=== PATIENT | male | born 1960 | race Caucasian/White ===

== ENCOUNTER → 2021-05-13 | Outpatient (CLI) | payer MEDICARE, OTHER ==
[~2021-05-13] MED LIST: ADVAIR 250-501 EACH INH; AMITIZA24 MCG PO; AMMONIUM LACTA140 GM TOP; ASPIRIN EC81 MG PO; CETIRIZINE HCL10 MG PO; COMBIVENT0.074 GM/I INH; CYMBALTA30 MG PO; DECADRON6 MG PO; DIGOXIN125 MCG PO; ELIQUIS5 MG PO; FAMOTIDINE40 MG PO; FLOMAX 0.4 MG0.4 MG PO; FLONASE ALLER15.8 ML; HYDROCODON-ACE1 EAC6 PO; HYDROXYZINE HCL25 MG PO; IBUPROFEN600 MG PO; INCRUSE ELLI62.5 MCG INH; ISOSORBIDE MONO60 MG PO; KLONOPIN0.5 MG PO; LASIX 40 MG TAB40 MG PO; LIPITOR80 MG PO; LISINOPRIL2.5 MG PO; MEDROL DOSEPAK 24 MG PO; MONTELUKAST SOD10 MG PO; NEURONTIN800 MG PO; NITROGLYCERIN0.4 MG SL; OMNICEF 300 MG300 MG PO; ONDANSETRON HCL4 MG PO; OXYGEN; PATADAY2.5 ML EYEBOTH; PHENERGAN 25 MG25 M1 PO; PLAVIX 75 MG TA75 MG PO; PREDNISONE20 MG PO; PROAIR DIGIHAL90 MCG INH; PROTONIX40 MG PO; RANEXA1000 MG PO; SOTALOL AF160 MG PO; SPIRIVA18 MCG INH; SYMBICORT 160-1 INHA INH; VENTOLIN/PROVE0.5 ML INH; VITAMIN B-121000 MC2 SL; ZANTAC300 MG PO; ZETIA10 MG PO; ZYRTEC10 M3 PO; ZYRTEC10 MG PO
== END ==
LOC: CT 14:00
DX: R91.8 Other nonspecific abnormal finding of lung field (principal); J92.9 Pleural plaque without asbestos; Z87.891 Personal history of nicotine dependence
CPT/HCPCS: 36415

== ENCOUNTER 2021-06-09 18:19 | Inpatient (IN) | payer MEDICARE, OTHER ==
[~2021-06-09] VITALS: Ht 185.4 cm; Wt 95.3 kg
[~2021-06-09 18:19] MED LIST changes: -AMMONIUM LACTA140 GM TOP; -ASPIRIN EC81 MG PO; -CETIRIZINE HCL10 MG PO; -CYMBALTA30 MG PO; -DECADRON6 MG PO; -DIGOXIN125 MCG PO; -ELIQUIS5 MG PO; -FAMOTIDINE40 MG PO; -FLONASE ALLER15.8 ML; -HYDROCODON-ACE1 EAC6 PO; -HYDROXYZINE HCL25 MG PO; -INCRUSE ELLI62.5 MCG INH; -ISOSORBIDE MONO60 MG PO; -KLONOPIN0.5 MG PO; -LIPITOR80 MG PO; -LISINOPRIL2.5 MG PO; -NEURONTIN800 MG PO; -ONDANSETRON HCL4 MG PO; -PATADAY2.5 ML EYEBOTH; -PROAIR DIGIHAL90 MCG INH; -PROTONIX40 MG PO; -SOTALOL AF160 MG PO; -SYMBICORT 160-1 INHA INH; -VITAMIN B-121000 MC2 SL; -ZETIA10 MG PO
[2021-06-09 19:58] LABS: HEMOGLOBIN 13.4 gm/dl (14.0-17.5); RED BLOOD COUNT 4.33 M/UL (4.20-5.50); WHITE BLOOD COUNT 9.1 K/UL (4.5-11.0)
[2021-06-09 22:22] LABS: BUN/CREATININE RATIO 9 (0-10)
[2021-06-10] MEDS ORDERED: NEURONTIN800 MG PO (01:50)
[2021-06-10] MEDS ORDERED: HYDROCODON-ACE1 EAC6 PO (01:51)
[2021-06-10] MEDS ORDERED: LIPITOR80 MG PO (01:55)
[2021-06-10] MEDS ORDERED: CYMBALTA30 MG PO (01:56)
[2021-06-10] MEDS ORDERED: FLONASE ALLER15.8 ML (01:58)
[2021-06-10] MEDS ORDERED: PROTONIX40 MG PO (01:59)
[2021-06-10] MEDS ORDERED: SOTALOL AF160 MG PO (02:01)
[2021-06-10 03:31] LABS: RED BLOOD COUNT 4.21 M/UL (4.20-5.50); WHITE BLOOD COUNT 11.7 K/UL (4.5-11.0)
[2021-06-10 03:51] LABS: BUN/CREATININE RATIO 11 (0-10)
[2021-06-10] MEDS ORDERED: AMMONIUM LACTA140 GM TOP (13:22)
[2021-06-10] MEDS ORDERED: CETIRIZINE HCL10 MG PO (13:24)
[2021-06-10] MEDS ORDERED: DIGOXIN125 MCG PO (13:29)
[2021-06-10] MEDS ORDERED: ELIQUIS5 MG PO (13:30)
[2021-06-10] MEDS ORDERED: ZETIA10 MG PO (13:31)
[2021-06-10] MEDS ORDERED: FAMOTIDINE40 MG PO (13:33)
[2021-06-10] MEDS ORDERED: INCRUSE ELLI62.5 MCG INH (13:43)
[2021-06-10] MEDS ORDERED: PATADAY2.5 ML EYEBOTH (13:46)
[2021-06-10] MEDS ORDERED: ONDANSETRON HCL4 MG PO (13:47)
[2021-06-10] MEDS ORDERED: SYMBICORT 160-1 INHA INH (13:51)
[2021-06-10] MEDS ORDERED: HYDROXYZINE HCL25 MG PO (13:53)
[2021-06-10] MEDS ORDERED: VITAMIN B-121000 MC2 SL (13:54)
[2021-06-10] MEDS ORDERED: LISINOPRIL2.5 MG PO (13:55)
[2021-06-10] MEDS ORDERED: LASIX 40 MG TAB40 MG PO (14:15)
[2021-06-10] MEDS ORDERED: PROAIR DIGIHAL90 MCG INH (14:49)
[2021-06-10] MEDS ORDERED: ASPIRIN EC81 MG PO (15:02)
[2021-06-10] MEDS ORDERED: ISOSORBIDE MONO60 MG PO (15:04)
[2021-06-10] MEDS ORDERED: KLONOPIN0.5 MG PO (20:44)
[2021-06-12 07:11] LABS: BUN/CREATININE RATIO 21 (0-10)
[2021-06-12] MEDS ORDERED: DECADRON6 MG PO (11:32)
[2021-06-12] MEDS ORDERED: OMNICEF 300 MG300 MG PO (11:37)
== END 2021-06-12 16:00 | disposition home or self-care (01) | DRG 871 ==
LOC: ER1 18:19 → CDU 23:49 → MED SURG 4 23:49
PROVIDERS: Internal Medicine; Student in an Organized Health Care Education/Training Program; ADMIT Internal Medicine
PROC: XW033E5 Introduction of Remdesivir Anti-infective into Peripheral Vein, Percutaneous Approach, New Technology Group 5 (ICD-10-PCS; 2021-06-09)
PROC: 3E0333Z Introduction of Anti-inflammatory into Peripheral Vein, Percutaneous Approach (ICD-10-PCS; 2021-06-09)
PROC: 8E0ZXY6 Isolation (ICD-10-PCS; principal; 2021-06-10)
DX: A41.89 Other specified sepsis (principal); U07.1 COVID-19; J12.82 Pneumonia due to coronavirus disease 2019; J96.01 Acute respiratory failure with hypoxia; J69.0 Pneumonitis due to inhalation of food and vomit; G93.41 Metabolic encephalopathy; J44.0 Chronic obstructive pulmonary disease with (acute) lower respiratory infection; E87.1 Hypo-osmolality and hyponatremia; N17.9 Acute kidney failure, unspecified; J44.1 Chronic obstructive pulmonary disease with (acute) exacerbation; E83.42 Hypomagnesemia; I11.0 Hypertensive heart disease with heart failure; I50.9 Heart failure, unspecified; I48.91 Unspecified atrial fibrillation; Z79.01 Long term (current) use of anticoagulants; Z79.82 Long term (current) use of aspirin
CPT/HCPCS: 36600; 71045; 80048; 80053; 82550; 82553; 82728; 82803; 83605; 83735; 84100; 84484; 85025; 85379; 87040; 93005; 94640; 94664; 94760; 96374; 99285; J0456; J0696; J1100; J1650; J3475; J7030; U0002

== ENCOUNTER 2021-06-16 01:51 | Emergency (ER) | payer MEDICARE, OTHER ==
[~2021-06-16 01:51] MED LIST changes: +AMMONIUM LACTA140 GM TOP; +ASPIRIN EC81 MG PO; +CETIRIZINE HCL10 MG PO; +CYMBALTA30 MG PO; +DECADRON6 MG PO; +DIGOXIN125 MCG PO; +ELIQUIS5 MG PO; +FAMOTIDINE40 MG PO; +FLONASE ALLER15.8 ML; +HYDROCODON-ACE1 EAC6 PO; +HYDROXYZINE HCL25 MG PO; +INCRUSE ELLI62.5 MCG INH; +ISOSORBIDE MONO60 MG PO; +KLONOPIN0.5 MG PO; +LIPITOR80 MG PO; +LISINOPRIL2.5 MG PO; +NEURONTIN800 MG PO; +ONDANSETRON HCL4 MG PO; +PATADAY2.5 ML EYEBOTH; +PROAIR DIGIHAL90 MCG INH; +PROTONIX40 MG PO; +SOTALOL AF160 MG PO; +SYMBICORT 160-1 INHA INH; +VITAMIN B-121000 MC2 SL; +ZETIA10 MG PO
[2021-06-16 03:17] LABS: HEMOGLOBIN 12.2 gm/dl (14.0-17.5); RED BLOOD COUNT 4.13 M/UL (4.20-5.50); WHITE BLOOD COUNT 11.6 K/UL (4.5-11.0)
[2021-06-16 03:47] LABS: BUN/CREATININE RATIO 19 (0-10)
== END 2021-06-16 08:20 | disposition home or self-care (01) ==
LOC: ER1 01:51
PROVIDERS: Physician Assistant
DX: U07.1 COVID-19 (principal); J44.1 Chronic obstructive pulmonary disease with (acute) exacerbation; I11.9 Hypertensive heart disease without heart failure
CPT/HCPCS: 36600; 71045; 80053; 82550; 82553; 82803; 83605; 83874; 83880; 84484; 85025; 85379; 87040; 93005; 94664; 99285

== ENCOUNTER 2021-10-11 20:52 | Emergency (ER) | payer MEDICARE, OTHER ==
[2021-10-11 21:38] LABS: HEMOGLOBIN 13.5 gm/dl (14.0-17.5); RED BLOOD COUNT 4.38 M/UL (4.20-5.50); WHITE BLOOD COUNT 24.3 K/UL (4.5-11.0)
[2021-10-11 21:58] LABS: BUN/CREATININE RATIO 15 (0-10)
[2021-10-11] MEDS ORDERED: ZITHROMAX250 MG PO (23:08)
[2021-10-11] MEDS ORDERED: IPRAT-ALBUT 0.5-3 ML INH (23:08)
[2021-10-11] MEDS ORDERED: OMNICEF 300 MG300 MG PO (23:08)
[2021-10-11] MEDS ORDERED: PREDNISONE20 MG PO (23:08)
== END 2021-10-11 23:35 | disposition home or self-care (01) ==
LOC: ER1 20:52
PROVIDERS: Family Medicine
DX: J44.1 Chronic obstructive pulmonary disease with (acute) exacerbation (principal); I51.9 Heart disease, unspecified; Z20.822 Contact with and (suspected) exposure to COVID-19
CPT/HCPCS: 71045; 80053; 82550; 82553; 82803; 83605; 83880; 84484; 85025; 87040; 93005; 96374; 99285; J2930; U0002

== ENCOUNTER 2021-10-15 18:31 | Emergency (ER) | payer MEDICARE, OTHER ==
[~2021-10-15 18:31] MED LIST changes: +IPRAT-ALBUT 0.5-3 ML INH; -PATADAY2.5 ML EYEBOTH; +PATADAY2.5 ML OU; +ZITHROMAX250 MG PO
[2021-10-15 19:37] LABS: HEMOGLOBIN 12.5 gm/dl (14.0-17.5); RED BLOOD COUNT 4.12 M/UL (4.20-5.50); WHITE BLOOD COUNT 18.4 K/UL (4.5-11.0)
[2021-10-15 20:02] LABS: BUN/CREATININE RATIO 22 (0-10)
[2021-10-15 20:46] LABS: BORDETELLA PARAPERTUSSIS Not Detected (Not Detectd); BORDETELLA PERTUSSIS Not Detected (Not Detectd); CHLAMYDIA PNEUMONIAE Not Detected (Not Detectd); CORONAVIRUS HKU1 Not Detected (Not Detectd); CORONAVIRUS NL63 Not Detected (Not Detectd); CORONAVIRUS OC43 Not Detected (Not Detectd); CORONOAVIRUS 229E Not Detected (Not Detectd); HUMAN METAPNEUMOVIRUS Not Detected (Not Detectd); HUMAN RHINOVIRUS/ENTEROVIRUS Not Detected (Not Detectd); INFLUENZA A Not Detected (Not Detectd); INFLUENZA B Not Detected (Not Detectd); MYCOPLASMA PNEUMONIAE Not Detected (Not Detectd); PARAINFLUENZA VIRUS 1 Not Detected (Not Detectd); PARAINFLUENZA VIRUS 2 Not Detected (Not Detectd); PARAINFLUENZA VIRUS 3 Not Detected (Not Detectd); PARAINFLUENZA VIRUS 4 Not Detected (Not Detectd); RESPIRATORY SYNCYTIAL VIRUS Not Detected (Not Detectd)
[2021-10-15 22:02] LABS: SARS-CoV-2 NOT DETECTED (Not Detectd)
[2021-10-16] MEDS ORDERED: ONDANSETRON HCL4 MG PO (17:12)
[2021-10-16] MEDS ORDERED: VITAMIN D250 MCG PO (17:13)
[2021-10-16] MEDS ORDERED: PREDNISONE 20 M20 MG PO (17:15)
[2021-10-16] MEDS ORDERED: CEFDINIR300 MG PO (17:16)
[2021-10-16] MEDS ORDERED: AZITHROMYCIN250 MG PO (17:17)
== END 2021-10-16 00:54 | disposition home or self-care (01) ==
LOC: ER1 18:31
PROVIDERS: Preventive Medicine Occupational Medicine
DX: R07.89 Other chest pain (principal); I48.91 Unspecified atrial fibrillation; I25.10 Atherosclerotic heart disease of native coronary artery without angina pectoris; Z20.822 Contact with and (suspected) exposure to COVID-19
CPT/HCPCS: 36600; 71045; 80053; 82009; 82550; 82553; 82803; 83605; 83690; 83874; 83880; 84484; 85025; 85652; 86140; 87040; 87633; 93005; 96374; 99285; C9113

== ENCOUNTER 2021-10-16 13:58 | Inpatient (IN) | payer MEDICARE, OTHER ==
[~2021-10-16] VITALS: Ht 185.4 cm; Wt 81.6 kg
[2021-10-16 15:20] LABS: HEMOGLOBIN 11.3 gm/dl (14.0-17.5); RED BLOOD COUNT 3.83 M/UL (4.20-5.50)
[2021-10-16 15:39] LABS: BUN/CREATININE RATIO 22 (0-10)
[2021-10-16] MEDS ORDERED: ONDANSETRON HCL4 MG PO (17:12)
[2021-10-16] MEDS ORDERED: VITAMIN D250 MCG PO (17:13)
[2021-10-16] MEDS ORDERED: PREDNISONE 20 M20 MG PO (17:15)
[2021-10-16] MEDS ORDERED: CEFDINIR300 MG PO (17:16)
[2021-10-16] MEDS ORDERED: AZITHROMYCIN250 MG PO (17:17)
[2021-10-17 07:51] LABS: HEMOGLOBIN 11.2 gm/dl (14.0-17.5); RED BLOOD COUNT 3.85 M/UL (4.20-5.50); WHITE BLOOD COUNT 9.8 K/UL (4.5-11.0)
[2021-10-17 08:37] LABS: BUN/CREATININE RATIO 25 (0-10)
[2021-10-18 06:35] LABS: HEMOGLOBIN 10.6 gm/dl (14.0-17.5); RED BLOOD COUNT 3.61 M/UL (4.20-5.50); WHITE BLOOD COUNT 12.2 K/UL (4.5-11.0)
[2021-10-18 07:17] LABS: BUN/CREATININE RATIO 29 (0-10)
[2021-10-19 07:40] LABS: HEMOGLOBIN 10.5 gm/dl (14.0-17.5); RED BLOOD COUNT 3.6 M/UL (4.20-5.50); WHITE BLOOD COUNT 9.4 K/UL (4.5-11.0)
[2021-10-19 08:24] LABS: BUN/CREATININE RATIO 28 (0-10)
--- NOTE | 2021-10-19 11:11 | NUR ---
RN CALLED DR. ROBLEDO ABOUT PATIENT'S FOLLOW-UP BLOOD GAS. HE ORDERED RN TO CONTINUE BIPAP UNTIL INSTRUCTED OTHERWISE.
--- NOTE | 2021-10-20 01:52 | NUR ---
PT'S BED ALARM WENT OFF. FOUNG PT LYING IN FLOOR NEXT TO BED. HE STATED THAT HE WAS GETTING UP TO USE URINAL. PRESENT AT BEDSIDE. THE PT DID NOT RING OUT FOR HELP. PT SAID HE SLID INTO THE FLOOR AND WASNT HURT. PT FREE OF S/SX OF DISTRESS OR INJURY. NOTIFIED DR VALENTINE AND RECIEVED NO NEW ORDERS. WILL CONTINUE TO MONITOR.
[2021-10-20 07:05] LABS: HEMOGLOBIN 11.3 gm/dl (14.0-17.5); RED BLOOD COUNT 3.82 M/UL (4.20-5.50); WHITE BLOOD COUNT 10.1 K/UL (4.5-11.0)
[2021-10-20 07:15] LABS: BUN/CREATININE RATIO 36 (0-10)
[2021-10-21] MEDS ORDERED: MEDROL DOSEPAK 24 MG PO (10:23)
[2021-10-21] MEDS ORDERED: SYMBICORT 160-1 INHA INH (10:23)
== END 2021-10-21 13:28 | disposition home or self-care (01) | DRG 291 ==
LOC: ER1 13:58 → CDU 16:15 → M/S 18:12
PROVIDERS: Emergency Medicine; Physician Assistant; Physician Assistant Medical; ADMIT Internal Medicine Infectious Disease
PROC: B24BZZZ Ultrasonography of Heart with Aorta (ICD-10-PCS; principal; 2021-10-18)
DX: I11.0 Hypertensive heart disease with heart failure (principal); J96.21 Acute and chronic respiratory failure with hypoxia; Z20.822 Contact with and (suspected) exposure to COVID-19; J96.22 Acute and chronic respiratory failure with hypercapnia; J18.9 Pneumonia, unspecified organism; I50.23 Acute on chronic systolic (congestive) heart failure; J44.1 Chronic obstructive pulmonary disease with (acute) exacerbation; E87.3 Alkalosis; E87.1 Hypo-osmolality and hyponatremia; K21.9 Gastro-esophageal reflux disease without esophagitis; I42.9 Cardiomyopathy, unspecified; I34.0 Nonrheumatic mitral (valve) insufficiency; I48.0 Paroxysmal atrial fibrillation; E78.5 Hyperlipidemia, unspecified; Z79.01 Long term (current) use of anticoagulants; Z79.82 Long term (current) use of aspirin; Z95.810 Presence of automatic (implantable) cardiac defibrillator; I25.2 Old myocardial infarction; Z87.891 Personal history of nicotine dependence
CPT/HCPCS: ECHO; 0240U; 36415; 36600; 71045; 71046; 80048; 80053; 80076; 82550; 82553; 82803; 83605; 83735; 83874; 83880; 84484; 85025; 85027; 87040; 93005; 93306; 94640; 94660; 94664; 94760; 96374; 96375; 99285; G0378; J0696; J1100; J1120; J1335; J2920; J2930

== ENCOUNTER 2021-12-07 18:21 | Emergency (ER) | payer MEDICARE, OTHER ==
[~2021-12-07 18:21] MED LIST changes: +AZITHROMYCIN250 MG PO; +CEFDINIR300 MG PO; +PREDNISONE 20 M20 MG PO; +VITAMIN D250 MCG PO
[2021-12-07 18:45] LABS: HEMOGLOBIN 9.6 gm/dl (14.0-17.5); RED BLOOD COUNT 3.2 M/UL (4.20-5.50); WHITE BLOOD COUNT 11.2 K/UL (4.5-11.0)
[2021-12-07 19:14] LABS: BUN/CREATININE RATIO 13 (0-10)
[2021-12-07] MEDS ORDERED: PREDNISONE 20 M20 MG PO (23:19)
== END 2021-12-08 09:00 | disposition home or self-care (01) ==
LOC: ER1 18:21
PROVIDERS: Physician Assistant
DX: J44.0 Chronic obstructive pulmonary disease with (acute) lower respiratory infection (principal); J20.9 Acute bronchitis, unspecified; J44.1 Chronic obstructive pulmonary disease with (acute) exacerbation; I48.91 Unspecified atrial fibrillation; I50.9 Heart failure, unspecified; I25.2 Old myocardial infarction; Z20.822 Contact with and (suspected) exposure to COVID-19; F17.200 Nicotine dependence, unspecified, uncomplicated; E11.9 Type 2 diabetes mellitus without complications; E78.5 Hyperlipidemia, unspecified; Z95.0 Presence of cardiac pacemaker
CPT/HCPCS: 0240U; 36600; 71045; 80053; 82550; 82553; 82803; 83605; 84484; 85025; 87040; 93005; 94664; 96374; 99285; J2930; Q9967

== ENCOUNTER → 2022-02-22 | Outpatient (CLI) | payer MEDICARE, OTHER | LOC: EXRD 11:25 | DX: R06.02 Shortness of breath (principal) | CPT/HCPCS: 71046 ==

== ENCOUNTER 2022-04-15 10:04 | Emergency (ER) | payer MEDICARE, OTHER | END 2022-04-15 13:25 | disposition home or self-care (01) | LOC: ER1 10:04 | DX: T16.1XXA Foreign body in right ear, initial encounter (principal); I11.9 Hypertensive heart disease without heart failure; I48.91 Unspecified atrial fibrillation; I25.10 Atherosclerotic heart disease of native coronary artery without angina pectoris; J44.9 Chronic obstructive pulmonary disease, unspecified; Z95.0 Presence of cardiac pacemaker | CPT/HCPCS: 99282 ==